=== PATIENT | born 1960 | race Caucasian/White ===

== ENCOUNTER 2023-01-13 20:27 | Emergency (ER) | payer OTHER, SELFPAY ==
[2023-01-13 20:35] VITALS: BP 153/92; PULSE 83; RESP 18; TEMP 36.6; O2SAT 97; BMI 50.1
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
--- NOTE | 2023-01-16 12:23 | DCPLANNER ---
shopping centre manager called patient due to no primary care physician - no answer at this time.
== END 2023-01-13 21:44 | disposition home or self-care (01) ==
PROVIDERS: Emergency Provider Nurse Practitioner Family
DX: S80.02XA Contusion of left knee, initial encounter (principal); R07.89 Other chest pain; V68.5XXA Driver of heavy transport vehicle injured in noncollision transport accident in traffic accident, initial encounter
CPT/HCPCS: 71046; 73562; 99283

== ENCOUNTER → 2023-03-23 11:01 | Outpatient (BNVA) | payer BC, SELFPAY | PROVIDERS: Visit Provider Family Medicine | DX: E11.9 Type 2 diabetes mellitus without complications (principal) | CPT/HCPCS: 80048; 82310; 83036; 83970 ==

== ENCOUNTER → 2023-03-24 | Outpatient (BNVA) | payer BC, SELFPAY | PROVIDERS: Visit Provider Family Medicine | DX: E11.9 Type 2 diabetes mellitus without complications (principal) | CPT/HCPCS: 82306 ==

== ENCOUNTER → 2023-06-22 09:17 | Outpatient (BNVA) | payer BC, SELFPAY | PROVIDERS: PCP Family Medicine; Visit Provider Family Medicine | DX: E11.9 Type 2 diabetes mellitus without complications (principal) | CPT/HCPCS: 80053; 83036 ==

== ENCOUNTER 2023-08-24 08:48 | Outpatient (CLI) | payer BC, SELFPAY ==
--- NOTE | 2023-08-24 09:00 | US_ITS ---
WS: [id number] ULTRASOUND THYROID TECHNIQUE: Ultrasound of the thyroid. CLINICAL INFORMATION: nodules COMPARISON: None. FINDINGS: Thyroid: Right thyroid lobe: 7.0 cm x 4.8 cm x 4.2 cm Large heterogeneous nodule mid RIGHT thyroid measuring 4.9 x 3.9 x 6.3 cm Left thyroid lobe: 4.7 cm x 1.6 cm x 1.9 cm. No LEFT thyroid nodules. Enlarged Isthmus: 0.8 mm. Cervical lymphadenopathy: None. IMPRESSION: 1. Dominant solid solid heterogeneous RIGHT thyroid nodule measuring 4.9 x 3.9 x 6.3 cm. TI-RADS 4. Recommend further evaluation with FNA. 2. No LEFT thyroid nodules. 3. Enlarged isthmus measuring 8 mm. TIRADS Category 4: Moderately suspicious (total points = 4) FNA if 1.5 cm Follow if 1 cm (at 1, 2, 3, and 5 years)
--- NOTE | 2023-08-24 13:00 | XR_ITS ---
WS: [id number] DEXA (DUAL ENERGY X-RAY ABSORPTIOMETRY) Bone mineral density was performed using a [employer] machine. HISTORY: hyperparathyroidism COMPARISON: None available. Lumbar spine BMD (L1-L4): 1.379 g/cm2 T score: 1.3 Z score: 1.0 Total hip BMD: Left: 0.916 g/cm2. T score: -1.3 Z score: -1.2 Right: 0.926 g/cm2. T score: -1.2 Z score: -1.2 10 year probability of a major osteoporotic fracture is 11.2%. IMPRESSION: OSTEOPENIA.
== END 2023-08-24 08:49 | disposition home or self-care (01) ==
LOC: RAD 08:49
PROVIDERS: PCP Internal Medicine; Visit Provider Internal Medicine
DX: E11.9 Type 2 diabetes mellitus without complications (principal); E21.0 Primary hyperparathyroidism
CPT/HCPCS: 76536; 77080

== ENCOUNTER 2023-08-31 10:07 | Outpatient (CLI) | payer BC, SELFPAY ==
[2023-08-31 10:58] LABS: Free T4 Free Thyroxine 1.09 ng/dL (0.82-1.77); Thyroid Stimulating Hormone 1.37 uIU/mL (0.27-4.20)
[2023-09-01 07:09] LABS: T3 Total 142 ng/dL (76-181)
== END 2023-08-31 10:08 | disposition home or self-care (01) ==
PROVIDERS: PCP Internal Medicine; Visit Provider Internal Medicine
DX: E21.0 Primary hyperparathyroidism (principal)
CPT/HCPCS: 36415; 84439; 84443; 84480

== ENCOUNTER 2023-09-07 08:13 | Outpatient (CLI) | payer BC, SELFPAY ==
--- NOTE | 2023-09-07 08:30 | NM_ITS ---
WS: [id number] EXAMINATION: NM parathyroid [id number] ORDER DATE: 09/07/2023 8:18 AM COMPARISON: Ultrasound with 08/24/2023 HISTORY: hyperparathyroidism TECHNIQUE: Parathyroid scintigraphy with 19.4 mCi of technetium 99m administered. AP and oblique views obtained with and without chin and suprasternal notch markers. Initial and 2 hour delayed imagi ng acquired. FINDINGS: Normal salivary gland uptake. Intense radiotracer uptake within the dominant solid RIGHT heterogeneou s thyroid nodule evaluated on the recent ultrasound. No significant washout of the RIGHT thyroid nodu le. Normal LEFT thyroid uptake and washout. No evidence of persistent extrathyroidal activity to indicate parathyroid adenoma. IMPRESSION: No evidence of persistent extrathyroidal activity to indicate parathyroid adenoma.
== END 2023-09-07 08:14 | disposition home or self-care (01) ==
PROVIDERS: PCP Family Medicine; Visit Provider Internal Medicine
DX: E11.9 Type 2 diabetes mellitus without complications (principal); E21.0 Primary hyperparathyroidism
CPT/HCPCS: 78070; A9500

== ENCOUNTER 2023-09-11 09:30 | Outpatient (CLI) | payer BC, SELFPAY ==
--- NOTE | 2023-09-11 10:00 | US_ITS ---
WS: [id number] ULTRASOUND THYROID FNA CLINICAL INFORMATION: thyroid nodule TECHNIQUE: Ultrasound-guided FNA FINDINGS: The procedure including risks, benefits, and complications were discussed with the patient who agreed to proceed. Timeout was performed. Using sterile technique patient was prepped and draped in usual sterile fashion. After 1% lidocaine, using ultrasound guidance, a 25-gauge needle was advanc ed into the RIGHT thyroid nodule. 5 passes were made with active aspiration. Pathology was present fo r slide preparation. No immediate complications. Patient remained in the ultrasound suite 10 minutes postprocedure with intermittent ultrasound to ens ure no hematoma. No hematoma 10 minutes postprocedure. IMPRESSION: Uncomplicated ultrasound-guided RIGHT thyroid nodule FNA
== END 2023-09-11 09:31 | disposition home or self-care (01) ==
LOC: RAD 09:31
PROVIDERS: PCP Family Medicine; Visit Provider Internal Medicine
DX: E04.1 Nontoxic single thyroid nodule (principal); E21.0 Primary hyperparathyroidism; R13.10 Dysphagia, unspecified
CPT/HCPCS: 10005; 88173

== ENCOUNTER 2023-09-21 08:42 | Outpatient (CLI) | payer BC, SELFPAY ==
[2023-09-21 09:35] LABS: Calcium 10.2 mg/dL (8.5-10.5)
[2023-09-21 09:43] LABS: Parathyroid Hormone 140.2 pg/mL (15-65)
[2023-09-21 09:49] LABS: 25 Hydroxy Vitamin D 29 ng/mL (30-100)
== END 2023-09-21 08:43 | disposition home or self-care (01) ==
LOC: LAB 08:44
PROVIDERS: PCP Family Medicine; Visit Provider Internal Medicine
DX: E11.9 Type 2 diabetes mellitus without complications (principal); E21.0 Primary hyperparathyroidism
CPT/HCPCS: 36415; 82306; 82310; 83970

== ENCOUNTER → 2023-09-28 11:13 | Outpatient (BNVA) | payer BC, SELFPAY | PROVIDERS: PCP Family Medicine; Visit Provider Family Medicine | DX: E11.9 Type 2 diabetes mellitus without complications (principal) | CPT/HCPCS: 80053; 83036 ==

== ENCOUNTER → 2023-12-28 12:20 | Outpatient (BNVA) | payer BC, SELFPAY | PROVIDERS: PCP Family Medicine; Visit Provider Family Medicine | DX: E11.9 Type 2 diabetes mellitus without complications (principal); I10 Essential (primary) hypertension | CPT/HCPCS: 80053; 83036; 83690 ==

== ENCOUNTER → 2024-02-17 08:30 | Outpatient (BNVA) | payer BC, SELFPAY | PROVIDERS: PCP Family Medicine; Visit Provider Family Medicine | DX: E21.3 Hyperparathyroidism, unspecified (principal) | CPT/HCPCS: 82310; 83970 ==

== ENCOUNTER → 2024-02-25 17:03 | Outpatient (BNVA) | payer BC, SELFPAY | PROVIDERS: PCP Family Medicine; Visit Provider Registered Nurse Neonatal Intensive Care | DX: R82.998 Other abnormal findings in urine (principal); N39.0 Urinary tract infection, site not specified | CPT/HCPCS: 81000; 87086 ==

== ENCOUNTER → 2024-06-13 11:52 | Outpatient (BNVA) | payer BC, SELFPAY | PROVIDERS: PCP Family Medicine; Visit Provider Family Medicine | DX: E11.9 Type 2 diabetes mellitus without complications (principal); E21.0 Primary hyperparathyroidism; R74.8 Abnormal levels of other serum enzymes | CPT/HCPCS: 80053; 82310; 83036; 83970; 84439; 84443 ==

== ENCOUNTER 2024-09-19 08:24 | Outpatient (CLI) | payer BC, SELFPAY ==
[2024-09-19 09:03] LABS: Free T4 Free Thyroxine 0.95 ng/dL (0.82-1.77); Thyroid Stimulating Hormone 4.14 uIU/mL (0.27-4.20)
== END 2024-09-19 08:25 | disposition home or self-care (01) ==
LOC: LAB 08:26
PROVIDERS: PCP Family Medicine; Visit Provider Internal Medicine
DX: E21.0 Primary hyperparathyroidism (principal); E04.2 Nontoxic multinodular goiter
CPT/HCPCS: 36415; 84439; 84443

== ENCOUNTER 2024-11-14 09:20 | Outpatient (CLI) | payer BC, SELFPAY ==
[2024-11-14 11:07] LABS: Blood Urea Nitrogen 9 mg/dL (8-23); Calcium 8.6 mg/dL (8.5-10.5); Carbon Dioxide 25 mmol/L (22-29); Chloride 105 mmol/L (98-107); Free T4 Free Thyroxine 0.92 ng/dL (0.82-1.77); Glomerular Filtration Rate 135.6 mL/min (90-130); Glucose 131 mg/dL (65-115); Osmolality Calculated 290 mOsm/kg (285-295); Sodium 140 mmol/L (136-145); Thyroid Stimulating Hormone 4.62 uIU/mL (0.27-4.20)
[2024-11-14 11:11] LABS: Calcium 8.6 mg/dL (8.5-10.5)
[2024-11-14 11:17] LABS: Parathyroid Hormone 56.1 pg/mL (15-65)
== END 2024-11-14 09:21 | disposition home or self-care (01) ==
LOC: LAB 09:23
PROVIDERS: PCP Family Medicine; Visit Provider Internal Medicine
DX: E21.0 Primary hyperparathyroidism (principal); E04.2 Nontoxic multinodular goiter
CPT/HCPCS: 36415; 80048; 82310; 83970; 84439; 84443

== ENCOUNTER → 2025-05-08 09:14 | Outpatient (BNVA) | payer BC, SELFPAY | PROVIDERS: PCP Family Medicine; Visit Provider Family Medicine | DX: Z12.5 Encounter for screening for malignant neoplasm of prostate (principal); I10 Essential (primary) hypertension; E11.9 Type 2 diabetes mellitus without complications; E21.0 Primary hyperparathyroidism; Z86.39 Personal history of other endocrine, nutritional and metabolic disease | CPT/HCPCS: 80053; 80061; 83036; 84153; 84439; 84443; 85025; 86376 ==